=== PATIENT | female | born 1940 | race Hispanic/Latino ===

== ENCOUNTER 2017-11-17 03:07 | Emergency (ER) | payer OTHER ==
[2017-11-17] MEDS ORDERED: MECLIZINE HCL 25 MG TABLET ONE (03:22)
[2017-11-17] MEDS ORDERED: ONDANSETRON HCL MDV 20ML 2 MG/ML VIAL ONE (03:22)
[2017-11-17] MEDS ORDERED: DIAZEPAM 2 MG TAB ONE (03:23)
[2017-11-17 03:34] LABS: CREATININE 1.1 mg/dL (0.5-1.5); POTASSIUM 4.6 mmol/L (3.5-5.1)
[2017-11-17 03:37] LABS: BASOPHILS % (AUTO) 0.5 % (0.0-5.0); EOSINOPHILS % (AUTO) 2.5 % (0.0-8.0); HEMATOCRIT 36.9 % (36-48); LYMPHOCYTES % (AUTO) 31.3 % (21.0-51.0); MEAN CORPUSCULAR HEMOGLOBIN 29.3 pg (27.0-33.0); MEAN CORPUSCULAR HGB CONC 33.6 g/dL (32.0-36.0); MEAN CORPUSCULAR VOLUME 87.1 fL (79-99); MONOCYTES % (AUTO) 8.5 % (3.0-13.0); NEUTROPHILS % (AUTO) 57.2 % (40.0-77.0); PLATELET COUNT (AUTO) 109 K/uL (130-400); RED BLOOD CELL COUNT(AUTO) 4.23 MIL/uL (4.00-5.50); RED CELL DISTRIBUTION WIDTH 13.4 % (11.0-15.5); WHITE BLOOD COUNT (AUTO) 7.5 K/uL (4.8-10.8)
[2017-11-17 03:48] LABS: ALBUMIN 3.6 g/dL (3.5-5.0); BILIRUBIN,TOTAL 0.3 mg/dL (0.2-1.0); CREATINE KINASE MB 0.9 ng/mL (0.5-3.6); TOTAL PROTEIN, SERUM 7.8 g/dL (6.0-8.3)
[2017-11-17] MEDS ORDERED: ATOR10 PO (20:01)
[2017-11-17] MEDS ORDERED: QUIN40TA19 PO (20:01)
[2017-11-17] MEDS ORDERED: [UNRECOGNIZED DRUG - OTHER] PO (20:01)
[2017-11-17] MEDS ORDERED: CHLO25TA3 PO (20:01)
[2017-11-17] MEDS ORDERED: ASPI-555 PO (20:36)
== END 2017-11-17 05:49 | disposition home or self-care (01) ==
LOC: EDH 03:07
DX: R42 Dizziness and giddiness (principal); R11.0 Nausea; E78.5 Hyperlipidemia, unspecified; I10 Essential (primary) hypertension; E11.9 Type 2 diabetes mellitus without complications; Z87.891 Personal history of nicotine dependence
CPT/HCPCS: 36415; 70450; 80053; 82550; 82553; 84484; 85025; 93005

== ENCOUNTER 2017-11-17 05:54 | Observation (INO) | payer OTHER ==
[2017-11-17] MEDS ORDERED: ASPIRIN 325 MG TABLET ONE (06:06)
[2017-11-17] MEDS ORDERED: LORAZEPAM 2 MG/ML 1 ML VIAL ONE (06:07)
[2017-11-17] MEDS ORDERED: SODIUM CHLORIDE 0.9% 1000ML 1,000 ML IV ONE (12:36)
[2017-11-17 18:50] VITALS: BP 145/79
[2017-11-17] MEDS ORDERED: SODIUM CHLORIDE 0.9% 1000ML 1,000 ML IV SCH (19:00)
[2017-11-17] MEDS ORDERED: MECLIZINE HCL 25 MG TABLET PO PRN (19:00)
[2017-11-17] MEDS ORDERED: ONDANSETRON HCL 4 MG/2 ML VIAL IVP PRN (19:00)
[2017-11-17] MEDS ORDERED: ATOR10 PO (20:01)
[2017-11-17] MEDS ORDERED: [UNRECOGNIZED DRUG - OTHER] PO (20:01)
[2017-11-17] MEDS ORDERED: QUIN40TA19 PO (20:01)
[2017-11-17] MEDS ORDERED: CHLO25TA3 PO (20:01)
[2017-11-17 20:36] VITALS: BP 145/79
[2017-11-17] MEDS ORDERED: ASPI-555 PO (20:36)
[2017-11-17] MEDS ORDERED: ATORVASTATIN CALCIUM 10 MG TABLET PO SCH (21:00)
[2017-11-17] MEDS: LISINOPRIL 40 MG TABLET PO SCH (22:07)
[2017-11-18] VITALS: BP 131/60
[2017-11-18 04:00] VITALS: BP 132/64
[2017-11-18 08:18] VITALS: BP 127/73
[2017-11-18] MEDS ORDERED: ASPIRIN 81 MG EC TAB PO SCH (09:00)
[2017-11-18] MEDS ORDERED: **HM**(Chlorthalidone 25 MG PO SCH (09:00)
[2017-11-18] MEDS: LISINOPRIL 40 MG TABLET PO SCH (10:16)
[2017-11-18 12:00] VITALS: BP 129/74
== END 2017-11-18 14:30 | disposition home or self-care (01) ==
LOC: EDH 05:54 → EDHIP 12:10 → 3CH 18:09
PROVIDERS: ADMIT Family Medicine; ATTEND Family Medicine
DX: R42 Dizziness and giddiness (principal); R51 Headache; I10 Essential (primary) hypertension; E78.5 Hyperlipidemia, unspecified; Z88.0 Allergy status to penicillin; Z90.49 Acquired absence of other specified parts of digestive tract; Z79.82 Long term (current) use of aspirin; Z79.899 Other long term (current) drug therapy
CPT/HCPCS: 70544; 70547; 70551; 93005; 96374; 99285; G0378 ×26; J2060; J2405; J7030

== ENCOUNTER 2019-01-24 22:33 | Observation (INO) | payer OTHER ==
[~2019-01-24] VITALS: Ht 157.5 cm; Wt 99.2 kg
[~2019-01-24 22:33] MED LIST: ASPI-555 PO; ATOR10 PO; CHLO25TA3 PO; QUIN40TA19 PO; [UNRECOGNIZED DRUG - OTHER] PO
[2019-01-24 23:19] LABS: APPEARANCE,URINE SLIGHTLY CLOUDY (CLEAR); BASOPHILS % (AUTO) 0.6 % (0.0-5.0); BILIRUBIN,URINE Negative (NEGATIVE); COLOR,URINE YELLOW (YELLOW); EOSINOPHILS % (AUTO) 2.8 % (0.0-8.0); GLUCOSE, URINE (UA) Negative (NEGATIVE); HEMATOCRIT 34.5 % (36-48); KETONES,URINE Negative (NEGATIVE); LEUKOCYTE ESTERASE ,URINE Moderate (NEGATIVE); LYMPHOCYTES % (AUTO) 25.3 % (21.0-51.0); MEAN CORPUSCULAR HEMOGLOBIN 29.3 pg (27.0-33.0); MEAN CORPUSCULAR HGB CONC 33.5 g/dL (32.0-36.0); MEAN CORPUSCULAR VOLUME 87.7 fL (79-99); MONOCYTES % (AUTO) 8.1 % (3.0-13.0); NEUTROPHILS % (AUTO) 63.2 % (40.0-77.0); NITRATE,URINE Negative (NEGATIVE); OCCULT BLOOD,URINE Negative (NEGATIVE); PH,URINE 5.5 (5.0-8.0); PLATELET COUNT (AUTO) 97 K/uL (130-400); PROTEIN,URINE Negative (NEGATIVE); RED BLOOD CELL COUNT(AUTO) 3.94 MIL/uL (4.00-5.50); RED CELL DISTRIBUTION WIDTH 13.2 % (11.0-15.5); WHITE BLOOD COUNT (AUTO) 7.6 K/uL (4.8-10.8)
[2019-01-24 23:27] LABS: CREATININE 0.9 mg/dL (0.5-1.5); POTASSIUM 4.3 mmol/L (3.5-5.1)
[2019-01-24 23:28] LABS: RBC,URINE 0-1 /HPF (0-1)
[2019-01-24 23:29] LABS: BACTERIA,URINE Few /HPF (None Seen)
[2019-01-24 23:31] LABS: ALBUMIN 3.9 g/dL (3.5-5.0); BILIRUBIN,DIRECT 0.1 mg/dL (0.0-0.3); BILIRUBIN,TOTAL 0.3 mg/dL (0.2-1.0); TOTAL PROTEIN, SERUM 7.5 g/dL (6.0-8.3)
[2019-01-24] MEDS ORDERED: SUCRALFATE 1 GM TABLET ONE (23:53)
[2019-01-24] MEDS ORDERED: HYOSCYAMINE SULFATE 0.125 MG TAB.SUBL SL ONE (23:53)
[2019-01-25 03:35] VITALS: BP 162/75
[2019-01-25] MEDS ORDERED: ACETAMINOPHEN 325 MG TAB PO PRN (03:45)
[2019-01-25] MEDS ORDERED: ONDANSETRON HCL 4 MG/2 ML VIAL IVP PRN (03:45)
[2019-01-25] MEDS ORDERED: HYDRALAZINE HCL 20 MG/ML VIAL IV PRN (03:45)
[2019-01-25] MEDS ORDERED: OMEP20TA25 PO (04:06)
[2019-01-25] MEDS ORDERED: CHLO25TA3 PO (04:06)
[2019-01-25 07:58] VITALS: BP 141/67
[2019-01-25] MEDS: PANTOPRAZOLE SODIUM 40 MG TABLET.DR PO SCH (09:25)
--- NOTE | 2019-01-25 10:16 | NUR ---
TAKEN OFF THE UNIT TO MRI.
--- NOTE | 2019-01-25 10:54 | NUR ---
RETURNED FROM MRI, TEST CANCELLED DUE TO SEVERE CLAUSTROPHOBIA/ANXIETY EPISODE WAS REPORTED. ORDER OBTAINED FOR LORAZEPAM.
[2019-01-25 12:00] VITALS: BP 147/76
[2019-01-25] MEDS ORDERED: LORAZEPAM 2 MG/ML 1 ML VIAL IVP SCH (12:00)
--- NOTE | 2019-01-25 12:00 | NUR ---
DYSPHAGIA EVAL COMPLETED. -S/S OF ASPIRATION. RECOMMEND REGULAR TEXTURE, THIN LIQUIDS; PILLS WHOLE WITH LIQUIDS. Addendum: 01/25/19 at 1301 by LAINA CLINTON, [facility] [address] Amended: Links added.
--- NOTE | 2019-01-25 12:31 | NUR ---
PATIENT HAD REFUSED TO HAVE THE MRI/MRA DONE AND ALSO REFUSED THE ANTIANXIETY MEDICATION. DALI TOSCANO WAS MADE AWARE AND DR JIMENEZ WAS MADE AWARE. FAMILY IS AT THE BEDSIDE WITH THE PATIENT.
--- NOTE | 2019-01-25 13:02 | NUR ---
COGNITIVE-LINGUISTIC EVALUATION COMPLETED. WITHIN FUNCTIONAL LIMITS. Addendum: 01/25/19 at 1302 by LAINA CLINTON, [facility] Amended: Links added.
[2019-01-25 16:00] VITALS: BP 141/67
--- NOTE | 2019-01-25 17:41 | NUR ---
cm note met with patient and states resides athome with spouse, independent with adls and self care, no dme. no hh or provider.dc plan is back to home at time of dc. no dc needs. Addendum: 01/25/19 at 1742 by LETI CARDOZA CM Amended: Links added.
[2019-01-25 20:00] VITALS: BP 140/56
--- NOTE | 2019-01-25 20:35 | NUR ---
Nursing Note Pt stated she would like to wait until 2100 or 2200 to take blood pressure medication. I informed her I would come back
[2019-01-25] MEDS ORDERED: ATORVASTATIN CALCIUM 40 MG TABLET PO SCH (21:00)
[2019-01-25] MEDS: LISINOPRIL 40 MG TABLET PO SCH (21:00)
[2019-01-25] MEDS ORDERED: ATORVASTATIN CALCIUM 10 MG TABLET PO SCH (21:00)
--- NOTE | 2019-01-25 21:38 | NUR ---
Nursing Note Went to give pt her medication but pt stated she already took her medication from her home meds.
[2019-01-26] VITALS: BP 146/66
[2019-01-26 04:00] VITALS: BP 144/65
[2019-01-26 05:53] LABS: CREATININE 0.8 mg/dL (0.5-1.5); MAGNESIUM 1.7 mg/dL (1.80-2.40); POTASSIUM 4.3 mmol/L (3.5-5.1)
[2019-01-26 07:54] VITALS: BP 131/59
[2019-01-26] MEDS ORDERED: NON-FORMULARY MEDICATION 1 EACH (Omeprazole 20 MG) PO SCH (09:00)
[2019-01-26] MEDS ORDERED: ASPIRIN 81 MG EC TAB PO SCH (09:00)
[2019-01-26] MEDS: LISINOPRIL 40 MG TABLET PO SCH (09:00)
[2019-01-26] MEDS: PANTOPRAZOLE SODIUM 40 MG TABLET.DR PO SCH (09:51)
[2019-01-26 12:00] VITALS: BP 134/59
--- NOTE | 2019-01-26 15:53 | NUR ---
CUSTOMER SERVICE ENGINEER [facility] NOTIFICATION PATIENT REQUEST TO LEAVE AMA. CHARGE NURSE JENNIFER SPOKE WITH FAMILY AND FAMILY AGREES TO WAIT TO SPEAK WITH [facility] BEFORE SIGNING AMA PAPERWORK AND LEAVING.
--- NOTE | 2019-01-26 16:00 | NUR ---
ROGER PERRY FOR [employer]CH[employer] AGRONOMY TECHNICIAN HERE TO TALK WITH PT, ORDERS RECEIVED.
--- NOTE | 2019-01-26 16:15 | NUR ---
CALL TO DR. BAIRES T/C PLACED TO DR. BAIRES, INFORMED THAT 2 DECHO HAD NOT BEEN DONE, NO ORDERS.
== END 2019-01-26 16:49 | disposition home or self-care (01) ==
LOC: EDH 22:33 → EDHIP 01-25 02:15 → 3AH 01-25 03:01
PROVIDERS: ADMIT Internal Medicine Pulmonary Disease; ATTEND Internal Medicine Pulmonary Disease
DX: G45.9 Transient cerebral ischemic attack, unspecified (principal); E78.5 Hyperlipidemia, unspecified; I10 Essential (primary) hypertension; G43.909 Migraine, unspecified, not intractable, without status migrainosus; K29.70 Gastritis, unspecified, without bleeding; E66.01 Morbid (severe) obesity due to excess calories; F41.9 Anxiety disorder, unspecified; Z88.0 Allergy status to penicillin; Z79.82 Long term (current) use of aspirin; Z90.49 Acquired absence of other specified parts of digestive tract; Z79.899 Other long term (current) drug therapy
CPT/HCPCS: 36415 ×3; 70450 ×2; 71045; 80048 ×2; 80076; 81001; 82550; 83540; 83550; 83690; 83721; 83735; 84484; 85025; 87088; 92522; 92610; 93005; 93880; 99284; A4600; G0378 ×39

== ENCOUNTER → 2019-07-29 | Outpatient (CLI) | payer OTHER ==
[~2019-07-29] MED LIST changes: +OMEP20TA25 PO; -[UNRECOGNIZED DRUG - OTHER] PO
== END | disposition home or self-care (01) ==
LOC: SHCH 13:25
PROVIDERS: ATTEND Internal Medicine Cardiovascular Disease
DX: I73.9 Peripheral vascular disease, unspecified (principal)
CPT/HCPCS: 93922

== ENCOUNTER 2021-11-13 09:55 | Emergency (ER) | payer OTHER ==
[~2021-11-13] VITALS: Ht 154.9 cm; Wt 93.4 kg
[~2021-11-13 09:55] MED LIST changes: -ASPI-555 PO; +ASPI-556 PO; +OMEP20TA20 PO; -OMEP20TA25 PO; -QUIN40TA19 PO; +QUIN40TA37 PO
[2021-11-13 10:34] LABS: BASOPHILS % (AUTO) 0.3 % (0.0-5.0); HEMATOCRIT 37.4 % (36-48); LYMPHOCYTES % (AUTO) 18.1 % (21.0-51.0); MEAN CORPUSCULAR HEMOGLOBIN 28.4 pg (27.0-33.0); MEAN CORPUSCULAR HGB CONC 33.2 g/dL (32.0-36.0); MEAN CORPUSCULAR VOLUME 85.8 fL (79-99); NEUTROPHILS % (AUTO) 73.3 % (40.0-77.0); PLATELET COUNT (AUTO) 83 K/uL (130-400); RED BLOOD CELL COUNT(AUTO) 4.36 MIL/uL (4.00-5.50); RED CELL DISTRIBUTION WIDTH 12.9 % (11.0-15.5); WHITE BLOOD COUNT (AUTO) 5.8 K/uL (4.8-10.8)
[2021-11-13 10:42] LABS: CREATININE 0.8 mg/dL (0.5-1.5); POTASSIUM 4.1 mmol/L (3.5-5.1)
[2021-11-13 10:47] LABS: ALBUMIN 3.8 g/dL (3.5-5.0); BILIRUBIN,TOTAL 0.5 mg/dL (0.2-1.0); TOTAL PROTEIN, SERUM 7.6 g/dL (6.0-8.3)
[2021-11-13 10:54] LABS: APPEARANCE,URINE Cloudy (CLEAR); BILIRUBIN,URINE Negative (NEGATIVE); COLOR,URINE Yellow (YELLOW); GLUCOSE, URINE (UA) Negative (NEGATIVE); KETONES,URINE Negative (NEGATIVE); LEUKOCYTE ESTERASE ,URINE Moderate (NEGATIVE); NITRATE,URINE Negative (NEGATIVE); OCCULT BLOOD,URINE Negative (NEGATIVE); PH,URINE 7.5 (5.0-8.0); PROTEIN,URINE Negative (NEGATIVE); UROBILINOGEN,URINE 0.2 mg/dL (0.2-1.0)
[2021-11-13 10:58] LABS: BACTERIA,URINE Rare /HPF (None Seen); RBC,URINE 0-1 /HPF (0-1); SQUAMOUS EPITHELIAL CELL,UR Few /HPF (0-2)
[2021-11-13] MEDS ORDERED: ONDANSETRON 4MG INJ IVP ONE (11:00)
[2021-11-13] MEDS ORDERED: 0.9%NACL 1000ML 1,000 ML IV ONE (11:00)
[2021-11-13] MEDS ORDERED: PANTOPRAZOLE 40 MG/VIAL IVP ONE (11:00)
[2021-11-13 12:09] VITALS: BP 145/43
[2021-11-13] MEDS ORDERED: NIRM1TAB PO (12:14)
[2021-11-13] MEDS ORDERED: SULF1TAB42 PO (12:14)
[2021-11-13] MEDS ORDERED: PANT40TA55 PO (12:14)
== END 2021-11-13 12:40 | disposition home or self-care (01) ==
LOC: EDH 09:55
DX: U07.1 COVID-19 (principal); N39.0 Urinary tract infection, site not specified; F41.9 Anxiety disorder, unspecified; K21.9 Gastro-esophageal reflux disease without esophagitis; E78.00 Pure hypercholesterolemia, unspecified; I10 Essential (primary) hypertension; Z90.49 Acquired absence of other specified parts of digestive tract; Z79.899 Other long term (current) drug therapy; Z88.0 Allergy status to penicillin; Z79.82 Long term (current) use of aspirin
CPT/HCPCS: 36415; 80053; 81001; 83690; 84484; 85025; 87088; 87635; 93005; 96374; 96375; 99284; C9113; C9803; J2405; J7030 ×2

== ENCOUNTER 2021-11-15 10:05 | Inpatient (IN) | payer OTHER ==
[~2021-11-15] VITALS: Ht 152.4 cm; Wt 94.2 kg
[~2021-11-15 10:05] MED LIST changes: +NIRM1TAB PO; +PANT40TA55 PO; +SULF1TAB42 PO
[2021-11-15 11:04] LABS: BASOPHILS % (AUTO) 0.2 % (0.0-5.0); EOSINOPHILS % (AUTO) 0.5 % (0.0-8.0); HEMATOCRIT 35.3 % (36-48); LYMPHOCYTES % (AUTO) 22.1 % (21.0-51.0); MEAN CORPUSCULAR HEMOGLOBIN 28.6 pg (27.0-33.0); MEAN CORPUSCULAR HGB CONC 33.4 g/dL (32.0-36.0); MEAN CORPUSCULAR VOLUME 85.7 fL (79-99); NEUTROPHILS % (AUTO) 70.9 % (40.0-77.0); RED BLOOD CELL COUNT(AUTO) 4.12 MIL/uL (4.00-5.50); RED CELL DISTRIBUTION WIDTH 13.3 % (11.0-15.5); WHITE BLOOD COUNT (AUTO) 6.5 K/uL (4.8-10.8)
[2021-11-15 11:05] LABS: APPEARANCE,URINE Clear (CLEAR); BILIRUBIN,URINE Negative (NEGATIVE); COLOR,URINE Yellow (YELLOW); GLUCOSE, URINE (UA) Negative (NEGATIVE); KETONES,URINE Negative (NEGATIVE); LEUKOCYTE ESTERASE ,URINE Negative (NEGATIVE); NITRATE,URINE Negative (NEGATIVE); OCCULT BLOOD,URINE Negative (NEGATIVE); PROTEIN,URINE Negative (NEGATIVE)
[2021-11-15 11:12] LABS: POTASSIUM 4.6 mmol/L (3.5-5.1)
[2021-11-15 11:14] LABS: ALBUMIN 3.6 g/dL (3.5-5.0); BILIRUBIN,TOTAL 0.5 mg/dL (0.2-1.0); TOTAL PROTEIN, SERUM 7.3 g/dL (6.0-8.3)
[2021-11-15] MEDS ORDERED: ONDANSETRON 4MG INJ IVP ONE (11:30)
[2021-11-15 11:50] LABS: INR 0.98 (0.85-1.15); PROTHROMBIN TIME 10.7 SEC (9.6-11.6)
[2021-11-15 11:52] LABS: PARTIAL THROMBOPLASTIN TIME 27.5 SEC (26.3-35.5)
[2021-11-15] MEDS ORDERED: 0.9% NACL 500ML IV.SOLN 500 ML IV ONE (12:30)
[2021-11-15 12:39] LABS: PLATELET COUNT (AUTO) 58 K/uL (130-400)
[2021-11-15] MEDS ORDERED: FAMOTIDINE 20MG VIAL IV ONE (14:00)
[2021-11-15] MEDS ORDERED: 0.9%NACL 1000ML 1,000 ML IV SCH (15:30)
[2021-11-15] MEDS ORDERED: ACETAMINOPHEN 325 MG TAB PO PRN (15:30)
[2021-11-15] MEDS: 0.9%NACL 1000ML 1,000 ML IV SCH (16:04)
[2021-11-15] MEDS: DOXYCYCLINE 100MG+NS 250ML 250 ML IV SCH (16:04)
[2021-11-15] MEDS ORDERED: FURO20TA4 PO (16:12)
[2021-11-15] MEDS ORDERED: ONDA-104 PO (16:12)
[2021-11-15 16:24] LABS: RETICULOCYTE % (AUTO) 1.52 % (0.42-2.23)
[2021-11-15 17:00] LABS: THYROID STIMULATING HORMONE 0.61 uIU/mL (0.36-3.74)
[2021-11-15 17:57] VITALS: BP 193/95
[2021-11-15] MEDS ORDERED: ENALAPRILAT DIHYDRATE 1.25MG/ML 1ML VIAL IV PRN (18:30)
[2021-11-15 18:34] VITALS: BP 143/57
[2021-11-15] MEDS: ONDANSETRON 4MG INJ IV PRN (19:00)
[2021-11-15 20:00] VITALS: BP 142/69
[2021-11-15] MEDS ORDERED: PHARMACY COMMUNICATION MISC SCH (21:00)
[2021-11-15] MEDS ORDERED: ENOXAPARIN SODIUM 0.5 MG/KG EACH SQ SCH (21:00)
[2021-11-15] MEDS: NIFEDIPINE 10 MG CAP PO SCH (21:10)
[2021-11-15] MEDS: LISINOPRIL 20 MG TABLET PO SCH (21:10)
[2021-11-15] MEDS: ENOXAPARIN SODIUM 60 MG/0.6 ML SQ SCH (21:11)
[2021-11-15] MEDS: ACETAMINOPHEN 325 MG TAB PO PRN (22:52)
[2021-11-16] VITALS: BP 107/68
[2021-11-16] MEDS: 0.9%NACL 1000ML 1,000 ML IV SCH ×3 (02:01→23:33)
[2021-11-16] MEDS: DOXYCYCLINE 100MG+NS 250ML 250 ML IV SCH (03:31)
[2021-11-16 04:00] VITALS: BP 124/61
[2021-11-16] MEDS: ONDANSETRON 4MG INJ IV PRN ×3 (04:02→13:49)
[2021-11-16] MEDS: LISINOPRIL 20 MG TABLET PO SCH (07:59)
[2021-11-16] MEDS: ENOXAPARIN SODIUM 60 MG/0.6 ML SQ SCH (07:59)
[2021-11-16] MEDS: NIFEDIPINE 10 MG CAP PO SCH ×3 (07:59→20:21)
[2021-11-16 08:00] VITALS: BP 122/53
[2021-11-16] MEDS ORDERED: ENOXAPARIN SODIUM 40 MG/0.4 ML SYRINGE SQ SCH (09:00)
[2021-11-16 11:15] LABS: BASOPHILS % (AUTO) 0.3 % (0.0-5.0); EOSINOPHILS % (AUTO) 0.5 % (0.0-8.0); HEMATOCRIT 33.8 % (36-48); LYMPHOCYTES % (AUTO) 20.7 % (21.0-51.0); MEAN CORPUSCULAR HEMOGLOBIN 28.6 pg (27.0-33.0); MEAN CORPUSCULAR HGB CONC 33.1 g/dL (32.0-36.0); MEAN CORPUSCULAR VOLUME 86.2 fL (79-99); MONOCYTES % (AUTO) 6.9 % (3.0-13.0); NEUTROPHILS % (AUTO) 71.4 % (40.0-77.0); PLATELET COUNT (AUTO) 99 K/uL (130-400); RED BLOOD CELL COUNT(AUTO) 3.92 MIL/uL (4.00-5.50); RED CELL DISTRIBUTION WIDTH 13.7 % (11.0-15.5); WHITE BLOOD COUNT (AUTO) 6.4 K/uL (4.8-10.8)
[2021-11-16 11:27] LABS: CREATININE 0.9 mg/dL (0.5-1.5); POTASSIUM 4.2 mmol/L (3.5-5.1)
[2021-11-16 11:30] LABS: MAGNESIUM 1.7 mg/dL (1.80-2.40); PHOSPHORUS 3.1 mg/dL (2.5-4.9)
[2021-11-16] MEDS ORDERED: LOPERAMIDE HCL 2 MG CAP PO SCH (11:30)
[2021-11-16 12:00] VITALS: BP 104/51
[2021-11-16] MEDS: METOCLOPRAMIDE 10 MG/2 ML VIAL IVP SCH ×3 (13:21→20:21)
[2021-11-16] MEDS ORDERED: KETOROLAC 15MG/ML VIAL (15MG/ML) IM PRN (15:00)
[2021-11-16] MEDS ORDERED: MAGNESIUM 2GM PREMIX 50ML 50 ML IV SCH (15:30)
[2021-11-16] MEDS ORDERED: LOPERAMIDE HCL 2 MG CAP PO PRN (15:30)
[2021-11-16] MEDS ORDERED: DOXYCYCLINE 100MG+NS 250ML 0 ML IV ONE (15:33)
[2021-11-16 16:00] VITALS: BP 117/64
[2021-11-16 20:00] VITALS: BP 135/61
[2021-11-16] MEDS: ATORVASTATIN 10 MG TABLET PO SCH (20:21)
[2021-11-16] MEDS: PANTOPRAZOLE 40 MG/VIAL IVP SCH (20:21)
[2021-11-16] MEDS: ACETAMINOPHEN 325 MG TAB PO PRN (21:00)
[2021-11-17] VITALS: BP 128/66
[2021-11-17 04:00] VITALS: BP 138/76
[2021-11-17 04:40] LABS: HEMATOCRIT 32.4 % (36-48); MEAN CORPUSCULAR HEMOGLOBIN 29.2 pg (27.0-33.0); MEAN CORPUSCULAR HGB CONC 33.3 g/dL (32.0-36.0); MEAN CORPUSCULAR VOLUME 87.6 fL (79-99); RED BLOOD CELL COUNT(AUTO) 3.7 MIL/uL (4.00-5.50); RED CELL DISTRIBUTION WIDTH 14.1 % (11.0-15.5); WHITE BLOOD COUNT (AUTO) 5.7 K/uL (4.8-10.8)
[2021-11-17 04:49] LABS: CREATININE 0.9 mg/dL (0.5-1.5); POTASSIUM 4.7 mmol/L (3.5-5.1)
[2021-11-17 08:00] VITALS: BP 115/47
[2021-11-17] MEDS: NIFEDIPINE 10 MG CAP PO SCH ×3 (09:00→20:30)
[2021-11-17] MEDS ORDERED: ENOXAPARIN SODIUM 40 MG/0.4 ML SYRINGE SQ SCH (09:00)
[2021-11-17 09:22] LABS: INR 0.94 (0.85-1.15); PROTHROMBIN TIME 10.3 SEC (9.6-11.6)
[2021-11-17] MEDS: METOCLOPRAMIDE 10 MG/2 ML VIAL IVP SCH ×4 (09:26→20:29)
[2021-11-17] MEDS: PANTOPRAZOLE 40 MG/VIAL IVP SCH ×2 (09:27→20:30)
[2021-11-17] MEDS: LISINOPRIL 20 MG TABLET PO SCH (09:28)
[2021-11-17 10:21] LABS: PARTIAL THROMBOPLASTIN TIME 21.7 SEC (26.3-35.5)
[2021-11-17 11:12] LABS: % IRON SATURATION 27.6 % (22-44)
[2021-11-17] MEDS ORDERED: FONDAPARINUX SODIUM 2.5 MG/0.5 ML SQ SCH (11:38)
[2021-11-17 12:00] VITALS: BP 138/79
[2021-11-17 16:00] VITALS: BP 143/70
[2021-11-17 19:57] VITALS: BP 146/66
[2021-11-17] MEDS: ATORVASTATIN 10 MG TABLET PO SCH (20:29)
[2021-11-17] MEDS: GUAIFENESIN-DM 200/20 MG 10 ML PO PRN (20:37)
[2021-11-17] MEDS: ACETAMINOPHEN 325 MG TAB PO PRN (20:37)
[2021-11-18 00:16] VITALS: BP 129/67
[2021-11-18 04:19] VITALS: BP 151/103
[2021-11-18 06:38] LABS: MEAN CORPUSCULAR HEMOGLOBIN 28.1 pg (27.0-33.0); MEAN CORPUSCULAR HGB CONC 32.2 g/dL (32.0-36.0); MEAN CORPUSCULAR VOLUME 87.5 fL (79-99); PLATELET COUNT (AUTO) 116 K/uL (130-400); RED BLOOD CELL COUNT(AUTO) 4.23 MIL/uL (4.00-5.50); RED CELL DISTRIBUTION WIDTH 14.1 % (11.0-15.5); WHITE BLOOD COUNT (AUTO) 6.1 K/uL (4.8-10.8)
[2021-11-18 06:57] LABS: ALBUMIN 3.8 g/dL (3.5-5.0); BILIRUBIN,TOTAL 0.4 mg/dL (0.2-1.0); CREATININE 0.9 mg/dL (0.5-1.5); MAGNESIUM 1.7 mg/dL (1.80-2.40); POTASSIUM 4.3 mmol/L (3.5-5.1); TOTAL PROTEIN, SERUM 7.3 g/dL (6.0-8.3)
[2021-11-18 07:19] LABS: EOSINOPHILS % (MANUAL) 2 % (1-6); LYMPHOCYTES % (MANUAL) 16 % (22-44); MAN.DIFF COMMENT-IMPRESSION MANUAL DIFFERENTIAL; MONOCYTES % (MANUAL) 16 % (2-9); SEGMENTED NEUTROPHILS % 66 % (40-70)
[2021-11-18 08:00] VITALS: BP_SYST 131; BP_SYST 142; BP_DIAS 50; BP_DIAS 61
[2021-11-18] MEDS: GUAIFENESIN-DM 200/20 MG 10 ML PO PRN ×3 (08:11→18:42)
[2021-11-18] MEDS: LISINOPRIL 20 MG TABLET PO SCH (08:11)
[2021-11-18] MEDS: METOCLOPRAMIDE 10 MG/2 ML VIAL IVP SCH ×2 (08:11→11:04)
[2021-11-18] MEDS: FONDAPARINUX SODIUM 2.5 MG/0.5 ML SQ SCH (08:11)
[2021-11-18] MEDS: NIFEDIPINE 10 MG CAP PO SCH ×3 (08:11→20:30)
[2021-11-18] MEDS: PANTOPRAZOLE 40 MG/VIAL IVP SCH ×2 (08:11→20:30)
[2021-11-18] MEDS ORDERED: MAGNESIUM OXIDE 400 MG TABLET PO SCH (08:30)
[2021-11-18 12:00] VITALS: BP 147/65
[2021-11-18 16:22] VITALS: BP 145/71
[2021-11-18] MEDS: METOCLOPRAMIDE 5 MG TABLET PO SCH (17:08)
[2021-11-18 19:00] VITALS: BP 116/55
[2021-11-18] MEDS: ATORVASTATIN 10 MG TABLET PO SCH (20:30)
[2021-11-18] MEDS: BENZONATATE 100 MG CAPSULE PO PRN (22:58)
[2021-11-19] MEDS: METOCLOPRAMIDE 5 MG TABLET PO SCH ×3 (07:28→16:50)
[2021-11-19 07:53] VITALS: BP 152/65
[2021-11-19] MEDS: NIFEDIPINE 10 MG CAP PO SCH ×2 (08:25→15:37)
[2021-11-19] MEDS: PANTOPRAZOLE 40 MG/VIAL IVP SCH (08:25)
[2021-11-19] MEDS: LISINOPRIL 20 MG TABLET PO SCH (08:25)
[2021-11-19] MEDS: FONDAPARINUX SODIUM 2.5 MG/0.5 ML SQ SCH (08:26)
[2021-11-19 08:40] LABS: BASOPHILS % (AUTO) 0.1 % (0.0-5.0); EOSINOPHILS % (AUTO) 0.4 % (0.0-8.0); HEMATOCRIT 35.1 % (36-48); LYMPHOCYTES % (AUTO) 13.5 % (21.0-51.0); MEAN CORPUSCULAR HEMOGLOBIN 28.5 pg (27.0-33.0); MEAN CORPUSCULAR HGB CONC 32.8 g/dL (32.0-36.0); MEAN CORPUSCULAR VOLUME 87.1 fL (79-99); MONOCYTES % (AUTO) 8.1 % (3.0-13.0); NEUTROPHILS % (AUTO) 77.6 % (40.0-77.0); PLATELET COUNT (AUTO) 93 K/uL (130-400); RED BLOOD CELL COUNT(AUTO) 4.03 MIL/uL (4.00-5.50); RED CELL DISTRIBUTION WIDTH 13.9 % (11.0-15.5); WHITE BLOOD COUNT (AUTO) 7.5 K/uL (4.8-10.8)
[2021-11-19 08:52] LABS: CREATININE 0.8 mg/dL (0.5-1.5); POTASSIUM 3.8 mmol/L (3.5-5.1)
[2021-11-19] MEDS: ACETAMINOPHEN 325 MG TAB PO PRN (08:52)
[2021-11-19 08:56] LABS: ALBUMIN 3.7 g/dL (3.5-5.0); BILIRUBIN,TOTAL 0.5 mg/dL (0.2-1.0); MAGNESIUM 1.5 mg/dL (1.80-2.40); PHOSPHORUS 3.8 mg/dL (2.5-4.9); TOTAL PROTEIN, SERUM 7.5 g/dL (6.0-8.3)
[2021-11-19 11:11] VITALS: BP 122/40
[2021-11-19] MEDS: BENZONATATE 100 MG CAPSULE PO PRN (11:24)
[2021-11-19] MEDS ORDERED: MAGNESIUM 2GM PREMIX 50ML 50 ML IV SCH (13:30)
[2021-11-19 15:35] VITALS: BP 143/61
[2021-11-19] MEDS ORDERED: BENZ-70 PO (16:46)
[2021-11-19] MEDS ORDERED: NIFE30TA98 PO (16:46)
[2021-11-19] MEDS ORDERED: LISI20TA24 PO (16:46)
[2021-11-19] MEDS ORDERED: ATOR10 PO (16:46)
== END 2021-11-19 18:06 | disposition home or self-care (01) | DRG 640 ==
LOC: EDH 10:05 → EDHIP 15:11 → 2AH 17:31
PROVIDERS: ADMIT Internal Medicine; ATTEND Internal Medicine
DX: E87.1 Hypo-osmolality and hyponatremia (principal); U07.1 COVID-19; Z68.41 Body mass index [BMI] 40.0-44.9, adult; E86.0 Dehydration; E66.01 Morbid (severe) obesity due to excess calories; D69.6 Thrombocytopenia, unspecified; E78.5 Hyperlipidemia, unspecified; E78.00 Pure hypercholesterolemia, unspecified; I10 Essential (primary) hypertension; K21.9 Gastro-esophageal reflux disease without esophagitis; F41.9 Anxiety disorder, unspecified; E87.8 Other disorders of electrolyte and fluid balance, not elsewhere classified; D64.9 Anemia, unspecified; J20.8 Acute bronchitis due to other specified organisms
CPT/HCPCS: 36415; 71045; 80048; 80053; 81001; 81003; 82607; 82728; 82746; 82948; 83540; 83550; 83605; 83690; 83735; 83930; 83935; 84100; 84145; 84443; 84484; 85025; 85027; 85045; 85378; 85610; 85730; 86022; 87088; 87635; 87804; 93005; 96374; 96375; C9113; C9803; G0378; J1650; J1652; J1885; J2405; J2765; J3475; J3490; J7030

== ENCOUNTER → 2022-09-13 | Outpatient (CLI) | payer OTHER ==
[~2022-09-13] MED LIST changes: -ASPI-556 PO; +BENZ-226 PO; -CHLO25TA3 PO; +LEVO-70 PO; +LISI20TA24 PO; +NIFE30TA98 PO; -NIRM1TAB PO; -OMEP20TA20 PO; +PANT40TA54 PO; -PANT40TA55 PO; -QUIN40TA37 PO; +SODI100037 PO; -SULF1TAB42 PO
== END | disposition home or self-care (01) ==
LOC: RAH 12:51
PROVIDERS: ATTEND Internal Medicine
DX: J20.9 Acute bronchitis, unspecified (principal)
CPT/HCPCS: 71046

== ENCOUNTER 2022-10-28 09:08 | Emergency (ER) | payer OTHER ==
[~2022-10-28] VITALS: Ht 157.5 cm; Wt 86.2 kg
[~2022-10-28 09:08] MED LIST changes: +ACET-2247 PO; -LEVO-70 PO; -LISI20TA24 PO; -NIFE30TA98 PO; -PANT40TA54 PO; -SODI100037 PO; +VALS320T16 PO
[2022-10-28 09:29] LABS: BASOPHILS % (AUTO) 0.5 % (0.0-5.0); EOSINOPHILS % (AUTO) 1.4 % (0.0-8.0); HEMATOCRIT 36.5 % (36-48); LYMPHOCYTES % (AUTO) 19.1 % (21.0-51.0); MEAN CORPUSCULAR HEMOGLOBIN 28.7 pg (27.0-33.0); MEAN CORPUSCULAR HGB CONC 31.8 g/dL (32.0-36.0); MEAN CORPUSCULAR VOLUME 90.3 fL (79-99); NEUTROPHILS % (AUTO) 71.5 % (40.0-77.0); PLATELET COUNT (AUTO) 111 K/uL (130-400); RED BLOOD CELL COUNT(AUTO) 4.04 MIL/uL (4.00-5.50); RED CELL DISTRIBUTION WIDTH 14.4 % (11.0-15.5); WHITE BLOOD COUNT (AUTO) 6.6 K/uL (4.8-10.8)
[2022-10-28 09:50] LABS: ALBUMIN 3.6 g/dL (3.5-5.0); CREATININE 0.8 mg/dL (0.5-1.5); POTASSIUM 4.5 mmol/L (3.5-5.1); TOTAL PROTEIN, SERUM 7.3 g/dL (6.0-8.3)
[2022-10-28 10:15] LABS: APPEARANCE,URINE CLEAR (CLEAR); BILIRUBIN,URINE NEGATIVE (NEGATIVE); COLOR,URINE LIGHT-YELLOW (YELLOW); GLUCOSE, URINE (UA) NEGATIVE (NEGATIVE); KETONES,URINE NEGATIVE (NEGATIVE); LEUKOCYTE ESTERASE ,URINE 25 Leu/uL (NEGATIVE); NITRATE,URINE NEGATIVE (NEGATIVE); OCCULT BLOOD,URINE NEGATIVE (NEGATIVE); PROTEIN,URINE NEGATIVE (NEGATIVE); UROBILINOGEN,URINE 0.2 mg/dL (0.2-1.0)
[2022-10-28 10:30] LABS: RBC,URINE 0-1 /HPF (0-1); TRANSITIONAL EPI CELLS,URINE RARE /HPF (None Seen)
[2022-10-28 10:58] VITALS: BP 179/59
== END 2022-10-28 11:06 | disposition home or self-care (01) ==
LOC: EDH 09:08
DX: R00.2 Palpitations (principal); E78.00 Pure hypercholesterolemia, unspecified; Z79.899 Other long term (current) drug therapy; Z88.0 Allergy status to penicillin; Z88.8 Allergy status to other drugs, medicaments and biological substances; Z90.49 Acquired absence of other specified parts of digestive tract
CPT/HCPCS: 36415; 71045; 80053; 81001; 84484; 85025; 93005

== ENCOUNTER 2023-06-18 02:36 | Emergency (ER) | payer OTHER ==
[~2023-06-18] VITALS: Ht 152.4 cm; Wt 91.2 kg
[2023-06-18 03:01] LABS: APPEARANCE,URINE CLEAR (CLEAR); BILIRUBIN,URINE NEGATIVE (NEGATIVE); COLOR,URINE LIGHT-YELLOW (YELLOW); GLUCOSE, URINE (UA) NEGATIVE (NEGATIVE); KETONES,URINE NEGATIVE (NEGATIVE); LEUKOCYTE ESTERASE ,URINE NEGATIVE Leu/uL (NEGATIVE); NITRATE,URINE NEGATIVE (NEGATIVE); OCCULT BLOOD,URINE NEGATIVE (NEGATIVE); PH,URINE 6.5 (5.0-8.0); PROTEIN,URINE 10 mg/dL (NEGATIVE); UROBILINOGEN,URINE 0.2 mg/dL (0.2-1.0)
[2023-06-18 03:07] LABS: ADD UA MICROSCOPIC NO
[2023-06-18 03:09] LABS: RAPID GROUP A STREP positive (NEGATIVE); SARS-CoV-2, RNA, NAAT POSITIVE SARS CoV-2 (NEGATIVE)
[2023-06-18 03:14] LABS: MUCUS,URINE RARE LPF (None Seen); RBC,URINE 0-1 /HPF (0-1); SQUAMOUS EPITHELIAL CELL,UR MOD /HPF (0-2)
[2023-06-18 03:18] LABS: INFLUENZA TYPE A Negative For Type A (NEGATIVE); INFLUENZA TYPE B Negative For Type B (NEGATIVE)
[2023-06-18] MEDS ORDERED: AZIT500T2 PO (04:02)
[2023-06-18] MEDS ORDERED: IBUP-1493 PO (04:02)
[2023-06-18 04:09] LABS: BASOPHILS # (AUTO) 0.02 K/uL (0.00-0.20); BASOPHILS % (AUTO) 0.4 % (0.0-5.0); EOSINOPHILS # (AUTO) 0.05 K/uL (0.00-0.70); EOSINOPHILS % (AUTO) 0.9 % (0.0-8.0); HEMATOCRIT 36.5 % (36-48); IMMATURE GRANULOCYTE ABSOLUTE 0.01 K/uL (0-1); LYMPHOCYTES # (AUTO) 1.2 K/uL (1.0-4.8); LYMPHOCYTES % (AUTO) 21.1 % (21.0-51.0); MEAN CORPUSCULAR HEMOGLOBIN 28.2 pg (27.0-33.0); MEAN CORPUSCULAR HGB CONC 32.1 g/dL (32.0-36.0); MONOCYTES # (AUTO) 0.5 K/uL (0.1-1.0); MONOCYTES % (AUTO) 9.9 % (3.0-13.0); NEUTROPHILS # (AUTO) 3.7 K/uL (1.8-7.7); NEUTROPHILS % (AUTO) 67.5 % (40.0-77.0); PLATELET COUNT (AUTO) 66 K/uL (130-400); RED BLOOD CELL COUNT(AUTO) 4.15 MIL/uL (4.00-5.50); RED CELL DISTRIBUTION WIDTH 13.7 % (11.0-15.5); WHITE BLOOD COUNT (AUTO) 5.5 K/uL (4.8-10.8)
[2023-06-18 04:20] LABS: CREATININE 0.9 mg/dL (0.5-1.5); POTASSIUM 4.3 mmol/L (3.5-5.1)
[2023-06-18 04:25] LABS: ALBUMIN 3.5 g/dL (3.5-5.0); BILIRUBIN,TOTAL 0.2 mg/dL (0.2-1.0); TOTAL PROTEIN, SERUM 7.9 g/dL (6.0-8.3)
[2023-06-18] MEDS ORDERED: NIRM1TAB PO (04:33)
[2023-06-18 04:37] LABS: PLATELET MORPHOLOGY COMMENT DECREASED
[2023-06-18 04:59] VITALS: BP 142/62; PULSE 72; RESP 18; O2SAT 97
== END 2023-06-18 05:00 | disposition home or self-care (01) ==
LOC: EDH 02:36
DX: U07.1 COVID-19 (principal); J02.0 Streptococcal pharyngitis; I10 Essential (primary) hypertension; E78.00 Pure hypercholesterolemia, unspecified; Z90.49 Acquired absence of other specified parts of digestive tract; Z79.899 Other long term (current) drug therapy; Z98.890 Other specified postprocedural states; Z88.0 Allergy status to penicillin; Z88.8 Allergy status to other drugs, medicaments and biological substances
CPT/HCPCS: 36415; 71045; 80053; 81001; 81003; 85025; 87635; 87804; 87880